=== PATIENT | female | born 1960 | race Caucasian/White ===

== ENCOUNTER 2020-09-11 11:14 | Outpatient (REF) | payer OTHER, SELFPAY ==
--- NOTE | 2020-09-11 11:21 | MM_ITS ---
EXAMINATION: MM SCREENING DIGITAL BREAST TOMOSYNTHESIS, BILATERAL CLINICAL INFORMATION: Screening. Asymptomatic. The lifetime risk of breast cancer based on the Tyrer-Cuzick Model is 5%. COMPARISON: Mammography: 07/27/2019, 06/25/2018 TECHNIQUE: Digital breast tomosynthesis is performed in both the craniocaudal and mediolateral oblique views along with computer-aided detection (CAD). Synthesized 2D images are generated from the tomosynthesis. Additional exaggerated right CC view is provided. FINDINGS: There are scattered areas of fibroglandular density (ACR BI-RADS breast composition Category b). There are no significant masses, abnormal calcifications, or other abnormalities. The axilla and skin contours are unremarkable. No significant changes. MM/MM tomosynthesis screening BI IMPRESSION: No mammographic evidence of malignancy. ASSESSMENT: BI-RADS 1: Negative RECOMMENDATION: Routine annual mammography screening. This patient's information was entered into a reminder system with a target due date for their next mammogram.
== END 2020-09-11 11:15 | disposition home or self-care (01) ==
LOC: HO.MAMMO 11:14
PROVIDERS: PCP Internal Medicine; Visit Provider Internal Medicine
DX: Z12.31 Encounter for screening mammogram for malignant neoplasm of breast (principal)
CPT/HCPCS: 77063; 77067

== ENCOUNTER 2023-11-16 10:51 | Outpatient (REF) | payer MEDICARE, OTHER, SELFPAY | END 2023-11-16 10:52 | disposition home or self-care (01) | LOC: HO.MAMMO 10:51 | PROVIDERS: PCP Family Medicine; Visit Provider Internal Medicine | DX: Z12.31 Encounter for screening mammogram for malignant neoplasm of breast (principal) | CPT/HCPCS: 77063; 77067 ==

== ENCOUNTER → 2023-11-16 11:00 | Outpatient (BNV) | payer MEDICARE, OTHER, SELFPAY | PROVIDERS: PCP Family Medicine; Visit Provider Radiology Diagnostic Radiology | DX: Z12.31 Encounter for screening mammogram for malignant neoplasm of breast (principal) | CPT/HCPCS: 77063; 77067 ==

== ENCOUNTER 2024-03-15 13:43 | Emergency (ER) | payer MEDICARE, OTHER, SELFPAY ==
--- NOTE | ~2024-03-15 | US_ITS ---
EXAMINATION: US VENOUS ULTRASOUND WITH DOPPLER LOWER EXTREMITY, RIGHT CLINICAL INFORMATION: Edema and pain. COMPARISON: None available. TECHNIQUE: Ultrasound of the deep veins is performed from the hip to the calf with compression sonography and color and pulse Doppler assessment. Spectral analysis with color-flow imaging is performed. FINDINGS: There is normal venous compression and respiratory variation and augmented flow. The visualized common femoral vein, superficial femoral vein, profunda femoral vein, popliteal vein, and the trifurcation region shows no evidence of deep venous thrombosis. There is no significant popliteal fossa cyst. If the patient's symptoms persist, followup ultrasound in 5 days 7 days might be of value to exclude proximal propagation from a non-visualized calf vein. US/US venous duplex LE RT IMPRESSION: No DVT demonstrated in the right lower extremity.
--- NOTE | ~2024-03-15 | XR_ITS ---
EXAMINATION: XR KNEE, RIGHT CLINICAL INFORMATION: Pain and swelling. COMPARISON: None available. TECHNIQUE: Four views of the right knee. FINDINGS: No acute fracture or subluxation. Mild tricompartmental degenerative osteoarthritis. No osseous erosions. No chondrocalcinosis. Small joint effusion. XR/XR knee RT 3V IMPRESSION: 1. No acute fracture or subluxation. 2. Mild tricompartmental degenerative osteoarthritis. 3. Small joint effusion.
[2024-03-15 13:47] VITALS: BP 133/82; PULSE 65; RESP 16; TEMP 36.6; O2SAT 96; BMI 26.3
--- NOTE | 2024-03-15 13:47 | ED_ITS ---
HPI - Extremity Injury (Lower) General Chief Complaint: Extremity Injury, Lower Stated Complaint: r knee inj Time Seen by Provider: 03/15/24 14:32 Source: patient Mode of arrival: ambulatory Limitations: no limitations History of Present Illness HPI Narrative: 63-year-old female history of kidney disease presents to the ED for right knee pain and swelling since doing gardening work. Patient states while doing going to work on Monday she was doing heavy lifting and made awkward rotating turning movement of her right knee. Patient states at 1 point she almost fell so she gather her herself twisted her right knee. Patient denies falling to the ground. Patient denies hitting head. Patient states ever since right knee pain and swelling. Patient states no leg swelling, calf pain, chest pain, shortness of breath, recent long travel, recent surgery. Patient states knee swelling has improved with icing but still has pain. Related Data Previous Rx's ?Medication ?Instructions ?Recorded acetaminophen 325 mg capsule 325 mg PO QID PRN pain 7 days #28 03/15/24 caps prednisone 20 mg tablet 40 mg (2 x 20 mg) PO DAILY 5 days 03/15/24 #10 tabs Allergies Allergy/AdvReac Type Severity Reaction Status Date / Time lithium [LITHIUM] Allergy Intermediate KIDNEY Verified 03/15/24 13:50 DAMAGE Codeine Sulfate Allergy Unknown Unknown Uncoded 03/15/24 13:50 Review of Systems 2 Review of Systems: Right knee pain Yes all other systems are reviewed and are negative [facility] Social History Social History (System 10/29/20 @ 14:56 by Araceli Cunningham) Advance Directives: No Advance Directives Information Provided: No Physical Exam 2 Vital Signs: Vital Signs: Last Vital Signs Temp 98 F 03/15/24 17:09 Pulse 65 03/15/24 17:09 Resp 18 03/15/24 17:09 BP 133/82 03/15/24 17:09 Pulse Ox 96 03/15/24 17:09 O2 Del Method Room Air 03/15/24 17:09 BMI result Body Mass Index 26.3 Const: General: cooperative, healthy appearing, comfortable, no acute distress, well developed, alert, awake and Physically active O rientation/consciousness: oriented to person, oriented to place, oriented to time and patient oriented x3 HEENT: Head: Yes normal to inspection, Yes No palpable skull fracture present, Yes normocephalic, Yes atraumatic and No abrasion Eyes: General: appearance normal, both eyes and all related structures Neck: Neck: Yes normal visual inspection, Yes full ROM, Yes no lymphadenopathy, Yes no meningeal signs, Yes trachea midline, Yes supple, No anterior neck swelling and No tender Chest: Chest palpation & inspection: normal inspection of the chest and normal palpation of entire chest wall Resp: Effort & Inspection: normal respiratory effort and able to speak in complete sentences Auscultation: clear to auscultation bilaterally Cardio: Jugular venous distension: no JVD Heart sounds: S1 normal heart sound present and S2 normal heart sound present GI: Inspection: Yes normal to inspection and No abdominal wall ecchymosis P alpation (GI): Soft to palpation, not firm, nontender, no guarding and not rigid : General: No CVA tenderness and Yes no CVA tenderness Back/Spine/Pelvis: Back: no CVA tenderness, No CVA tenderness and No back tenderness Skin: General skin exam: no rashes or lesions noted, elasticity normal and turgor normal Neuro: General: oriented to person, oriented to place, oriented to time, patient oriented x3, gait normal, tone normal, moves all extremities, Normal light touch and pain sensation, no meningeal signs, no focal motor deficits, CN's II-XI intact bilaterally and normal sensation to monofilament Extrem: General: Yes normal to inspection, Yes full ROM and Yes capillary refill normal Knee images: 1. Positive for swelling and tenderness on palpation. Negative for erythema, ecchymosis, crepitus, or deformity. negative for Warmth or coldness. Patient has complete flexion and extension of knee. Rest of lower extremity normal. Motor/neuro/ vascular exam intact 2. Positive for swelling and tenderness on palpation. Negative for erythema, ecchymosis, crepitus, or deformity. negative for Warmth or coldness. Patient has complete flexion and extension of knee. Rest of lower extremity normal. Motor/neuro/ vascular exam intact 3. positive for tenderness on palpation . Negative for palpable mass on palpation. Psych: Appearance: grossly normal, well kempt and not disheveled Course Course Course Narrative: This is a rapid medical exam performed by Minh Snyder NP: Additional HPI, ROS, PE not included below will be deferred to primary provider. Patient is a 63-year-old female presenting to the ED with complaint of right knee pain and swelling since doing a good deal of yardwork on Monday. Saw PCP who referred her to ortho clinic which was closed. Has been using ice, pain and swelling are persisting. Pain behind knee for the first two days. Swelling noted in triage. Plan: x-ray Medical Decision Making Medical Decision Making MDM Narrative: 63-year-old female presents to the ED for right knee pain and swelling since doing garden work on Monday and did awkward movement. Patient states icing has improved but still swollen also has posterior knee pain. Initial x-ray shows arthritis with small joint effusion. Not suspecting septic joint. Due to posterior knee pain will do ultrasound to make sure there is no possible DVT. not suspecting gout. patient explained worrisome signs and to told return if she has them. Differential Diagnosis Differential Diagnoses: The differential diagnosis associated with the presentation includes (fracture, ACL/meniscus injfury, dislocation, septic joint, gout) Independent Interpretation I performed an independent interpretation of an: Plain X-Ray Radiology Impression Discussion of test interpretation with radiology: I have reviewed the radiologist's reading. Independent Historian Clinical information obtained from an independent historian. History obtained from or confirmed by: Other (patient) External Record Review External record reviewed: Other (prior vistis) Prescription Management I considered prescription management with: Pain Medication Discharge Plan Discharge Clinical Impression: Swelling of joint, knee, right, Arthritis Patient Disposition: Home, Self-Care Instructions: Osteoarthritis (ED), Swollen Knee Joint (ED) Additional Instructions: ultrasound came back negative for DVT. Right knee x-ray shows small joint effusion and degenerative osteoarthritis. You may need MRI to evaluate for possible meniscus ligament tear of the knee. Return to the ED immediately for worsening swelling, redness, warmth, stiffness, calf pain, fever, chest pain, shortness of breath, or any other concerning symptoms. Recommend follow-up with primary care provider and you will need follow-up with orthopedic surgeon. Recommend icing the 1st 24 hours and also Donnie wrap. No strenuous activity. XR/XR knee RT 3V IMPRESSION: 1. No acute fracture or subluxation. 2. Mild tricompartmental degenerative osteoarthritis. 3. Small joint effusion. US/US venous duplex LE RT IMPRESSION: No DVT demonstrated in the right lower extremity. Prescriptions: New prednisone 20 mg tablet 40 mg PO DAILY 5 Days Qty: 10 0RF acetaminophen 325 mg capsule 325 mg PO QID PRN (Reason: pain) 7 Days Qty: 28 0RF [place] [facility] [place] [facility] [place] ( Right knee swelling after awkward movement while gardening. May need MRI to rule out meniscus / ligament tear.) Interventions: ED Discharge Assessment Last Done: 03/15/24 17:09 Discharge Date/Time: 03/15/24 17:10 Print Language: Greenlandic
--- NOTE | 2024-03-15 15:31 | MHC.EDTECH ---
Pt fitted for crutches, tolerates them well and has no complaints
[2024-03-15 17:09] VITALS: BP 133/82; PULSE 65; RESP 18; TEMP 36.6; O2SAT 96
== END 2024-03-15 17:10 | disposition home or self-care (01) ==
PROVIDERS: Emergency Provider Emergency Medicine; PCP Family Medicine
DX: M17.11 Unilateral primary osteoarthritis, right knee (principal); M25.461 Effusion, right knee
CPT/HCPCS: 73562; 93971; 99283; 99284

== ENCOUNTER 2025-05-22 16:51 | Emergency (ER) | payer MEDICARE, OTHER, SELFPAY ==
[2025-05-22 17:04] VITALS: BP 173/88; PULSE 68; RESP 16; TEMP 35.9; O2SAT 98; BMI 25.8
--- NOTE | 2025-05-22 18:35 | ED.GENADULT ---
[facility] - General Adult General Chief complaint: Wound/Laceration Stated complaint: open wound on face Time Seen by Provider: 05/22/25 18:52 Source: patient, family and RN notes reviewed Mode of arrival: ambulatory Limitations: no limitations History of Present Illness ED Provider: Leela Rose PA-C [facility] narrative: This is a 64-year-old female, with a past medical history of anxiety, who presents emergency department with concerns of wound on left side of face. Patient states that about 1 year ago she had a wound, she states that she was unsure if she was bit or injured, she states that she eventually followed up with a sales management trainee, at that time the sales management trainee was treating for a scar, she had did not have a biopsy performed. Patient states that eventually the wound had healed. She states that since yesterday she has noticed increased redness, and itchiness to the left side of her face as well as associated mild pain. No fevers or chills. No known injury, or exposures. She is otherwise feeling well. No other complaints or concerns at this time. MD complaint: Rash Onset (ago): day(s) Location: face Radiation: non-radiation Pain Consistency: constant Associated symptoms: denies other symptoms Treatments prior to arrival: none Related Data Previous Rx's ?Medication ?Instructions ?Recorded acetaminophen 325 mg capsule 325 mg PO QID PRN pain 7 days #28 03/15/24 caps prednisone 20 mg tablet 40 mg (2 x 20 mg) PO DAILY 5 days 03/15/24 #10 tabs mupirocin 2 % topical ointment 1 appl topical BID #15 grams 05/22/25 (Centany) prednisone 20 mg tablet 40 mg (2 x 20 mg) PO DAILY 5 days 05/22/25 #10 tabs valacyclovir 1 gram tablet 1,000 mg PO TID 10 days #30 tabs 05/22/25 Allergies Allergy/AdvReac Type Severity Reaction Status Date / Time lithium (LITHIUM) Allergy Intermediate KIDNEY Verified 05/22/25 17:04 DAMAGE Codeine Sulfate Allergy Unknown Unknown Uncoded 05/22/25 17:04 Review of Systems Review of Systems: Yes all other systems are reviewed and are negative Constitutional: Constitutional: Reports as per [facility] Past Medical History Attestation statement: The following information was validated with the patient. Social History Social History (System 10/29/20 @ 14:56 by Araceli Cunningham) Advance Directives: No Advance Directives Information Provided: No Physical Exam ED Vital Signs: Vital Signs - 24 hr 05/22/25 17:04 05/22/25 19:26 Temperature 96.7 F L 96.7 F L Pulse Rate 68 68 Respiratory Rate 16 16 Blood Pressure 173/88 H 173/88 H Pulse Oximetry 98 98 Oxygen Delivery Method Room Air Room Air BMI result Body Mass Index 25.8 Const Other: General: Awake, alert, and oriented X3. No acute distress. HEENT: Normal inspection CVS: Normal heart rate and rhythm. Pulses normal. Respiratory: No respiratory distress Skin: See photo Extremities: Normal to inspection Neuro: Oriented X 3. No motor deficit. No sensory deficit. Left side of face, with area of erythema, she does have multiple vesicles noted, nontender Medical Decision Making Medical Decision Making MDM Narrative: This is a 64-year-old female, with a past medical history of anxiety, who presents emergency department with complaints of rash on the left side of her face. On arrival, blood pressure slightly elevated 173/88, she has no chest pain, shortness of breath, blurred vision, headaches. Patient has had a rash on the left side of her face, patient has had this for a year, she states that it resolved up until yesterday. She does have multiple vesicles, difficult to see on photo. Discussed with patient, that she may have early shingles. Discussed with patient that we will treat with prednisone, valacyclovir, and Bactroban. Given strict return precautions. Encouraged to follow-up with dermatology as she may need to have this region biopsied. Given strict return precautions. Patient stable for discharge. Differential Diagnosis Differential Diagnoses: The differential diagnosis associated with the presentation includes Contact dermatitis, early shingles, wound, cellulitis Discharge Plan Discharge Clinical Impression: Rash Patient Disposition: Home, Self-Care Instructions: Acute Rash (ED) Additional Instructions: You were seen in the emergency department due to a rash. The concern is you have had this ongoing wound for the last year. Please follow-up with your sales management trainee. You may have a bacterial skin rash or you may also have the start of shingles. Please take prescribed medication as directed. Valacyclovir is an antiviral, prednisone is a steroid. Muprocin is a topical antibacterial agent that can help treat if this is a bacterial infection. If any new or worsening her including but not limited to worsening rash, high fevers, severe chest pain or shortness of breath, changes in your vision, the rash is spreading, please seek emergent care. Prescriptions: New valacyclovir 1 gram tablet 1,000 mg PO TID 10 Days Qty: 30 0RF prednisone 20 mg tablet 40 mg PO DAILY 5 Days Qty: 10 0RF mupirocin [Centany] 2 % ointment 1 appl topical BID Qty: 15 0RF No Action prednisone 20 mg tablet 40 mg PO DAILY 5 Days Qty: 10 0RF acetaminophen 325 mg capsule 325 mg PO QID PRN (Reason: pain) 7 Days Qty: 28 0RF Interventions: ED Discharge Assessment Last Done: 05/22/25 19:26 Discharge Date/Time: 05/22/25 19:26 Print Language: Chinese
--- OUTSIDE RECORDS SUMMARY | 2025-05-22 19:01 | XMS_ITS | Patient Health Record ---
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 Primary Care Provider Betty vailable Víctor Russell Unavailable [phone] Paradise Castro Unavailable Unavailable Reason For Referral No Information Medications Medication SIG (Take, Route, Fr equency, Duration) Notes Start Date End Date Status Topiramate Active SEROquel Active lamoTRIgine Active Eye Drops Active valACYclovir HCl Act dilma Immunizations Vaccine Route Administration Date Status Comme nts Influenza Unknown 07/14/2015 Administered Problems Problem Type SNOMED Code ICD Code Onset Dates Problem Status W/U Status Risk Notes Problem 343352284 Encounter for screening for malignant neoplasm of colon (Z12.11) Active confirmed Problem Screening for malignant neoplasm of rectum (067202584) Encounter for screening for malignant neoplasm of rectum (Z12.12) Active confirmed Problem 00711062 Preprocedural examination (Z01.818) Active confirmed Plan Of Treatment Future Test Test Name Order Date COLONOSCOPY 07/28/2016 Insurance Providers Payer Name Payer Address Payer Phone Subscriber Number Group Number Insured Name Patient Relationship to Insured Coverage Start Date Coverage End Date [facility] [address] [place] [phone] [id number] MARJORIE GRIGSBY Self - patient is the insured Medical (General) History Medical History History ICD Code COPD-- mild Denies IN,DM,CVA,,renal disease Depression/anxiety Surgical History Surgery Date(Month/Year) lump right breast- benign 1993 tonsillectomy-age 3
--- OUTSIDE RECORDS SUMMARY | 2025-05-22 19:01 | XMS_ITS | Data Portability ---
Author Organization [facility], [facility] Address [address] [place] [address] Care Team Providers Care Entertainer Or Variety Artist Name Role Phone CESAR KCIN Primary Care Provider Assessment No assessment recorded. Plan of Treatment Reminders Order Date Submit Date Provider Last Modified By Organization Details Last Modified Time Details Appointments None recorded. Lab None recorded. Referral None recorded. Procedures None recorded. Surgeries None recorded. Imaging None recorded. Medication Orders meloxicam 15 mg tablet 2023 024 TRACY Not available 4 15:39:55 Patient TargetsNo targets recorded. Patient InstructionsNo instructions recorded. Reason for Referral None Reported. Medical Equipment None Reported. Allergies Allergen ID Allergen Name Allergen Category Reaction Reaction Severity Criticality Documentation Date Start Date Code Code System Note Provider Name and Address Organization Details Recorded Time [id number] codeine medicatio n Not available Not available Not available 04/04/2024 2670 RxNorm BREA ojeda [facility] 4 10:21:42 Medications Name Sig Start Date Stop Date Status Note LastModified by Organization Details LastModified Time latanoprost 0.005 % eye drops INSTILL 1 DROP IN BOTH EYES EVERY NIGHT AT BEDTIME active Not Available Not Available No t Available buspirone 5 mg tablet active Not Available Not Available No t Available lamotrigine 200 mg tablet active Not Available Not Availabl e Not Available meloxicam 15 mg tablet TAKE 1 TABLET BY MOUTH EVERY DAY DIRECTED active Not Available Not Available No t Available prednisone 20 mg tablet TAKE 2 TABLETS BY MOUTH DAILY FOR 5 DAYS active Not Available Not Available No t Available butalbital-ac etaminophen-c affeine 50 mg-325 mg-40 mg tablet TAKE 1 TABLET BY MOUTH EVERY 8 HOURS NEEDED active Not Available Not Available No t Available meloxicam 7.5 mg tablet TAKE 1 TABLET BY MOUTH DAILY FOR 7 DAYS active Not Available Not Available No t Available trazodone 100 mg tablet TAKE 1 TABLET BY MOUTH DAILY AT BEDTIME active Not Available Not Available No t Available lorazepam 1 mg tablet active Not Available Not Available No t Available albuterol sulfate HFA 90 mcg/actuation aerosol inhaler INHALE 2 PUFFS BY MOUTH EVERY 4 TO 6 HOURS active Not Available Not Available No t Available topiramate 100 mg tablet TAKE 1 TABLET BY MOUTH TWICE DAILY active Not Available Not Available No t Available diclofenac 1 % topical gel APPLY 2 GRAMS TO THE AFFECTED AREAS TOPICALLY FOUR TIMES DAILY active Not Available Not Available No t Available desvenlafaxin e succinate ER 25 mg tablet,extend ed release 24 hr active Not Available Not Available Not Available Vitals Date Recorded Body height Body mass index (BMI) Body weight Provider Name and Address Organization Details Last Updated DateTime 04/02/2024 157.48 cm 26.3 kg/m2 22479.3 g KATIE perdomo [place] [facility] 04/02/2024 15:15:48 Social History None recorded. Functional Status None recorded. Mental Status None recorded. Family History Nothing Reported. Medical History No medical history recorded. Gynecological HistoryNo gynecological history recorded. Obstetrics History GPAL:G 0 P 0 0 0 0 Past Encounters Encounter ID Performer Location Encounter Start Date Encounter Closed Date Diagnosis/Indication Diagnosis SNOMED-CT Code Diagnosis ICD10 Code Diagnosis Note [id number] LIZBETH Sweeney [address] [place] [address] 04/02/2024 15:03:45 04/15/2024 14:41:39 Osteoarthritis of right knee joint 5749880189 06064 M17.11 Health Concerns Section Related Observation LastModified by Organization Detai ls LastModified Time None Recorded Concern Status LastModified by Organization Details LastModified Time None Recorded Advance Directives Directive None Recorded Payers Insurance Date Sequence Insurance Name Policy Number Policy Sierra Covered Member ID Sierra Member ID Guarantor Name 04/02/2024 1 [place]ICARE [place]: [employer] Se[place] Miles [id number] Seble Miles 04/15/2024 2 FOR LIFE ( - MEDICARE SUPPLEMENT) Seble Miles [id number] Seble Miles Notes Date Note Type Note Provider Name and Address Organization Details Recorded Time 04/02/2024 text/html I am seeing the patient today under the supervision of Dr. Vargas who was available but who did not see the patient. HPI:Patient is a 63-year-old female who presents to the office today with complaint of right knee pain. Patient states that she began to experience pain after gardening on 03/11/24 She states she was doing a lot of walking, squatting, kneeling, up and down stairs during that day. States the next day she had increased swelling in her knee as well as pain. Denied any specific inciting events or injuries. Shortly after did present to her primary care as well as an emergency department and was given a prescription for prednisone as well as meloxicam. She states that these medications combined have provided her with excellent relief. Her knee has barely any pain in it today and over the last couple of days. She has been slowly getting back into her normal activities without discomfort. Denies any mechanical symptoms such as catching, locking, or buckling. Past family, medical, social history and review of systems has been reviewed, updated and is located in the patient s chart. Examination:Well appearing 63-year-old female in no acute distress. She is alert and oriented x3. She ambulates with symmetric gait. Right knee reveals no erythema, warmth, ecchymosis, or swelling. Very mild tenderness to palpation over the medial joint line. No tenderness palpation over the lateral joint line. Range of motion of the knee from 3-120 degrees. The knee is stable to valgus and varus stress testing. Knee strength 5/5 against resistance with flexion and extension. Negative Mike test. Negative Michael's maneuver. Calf is soft and nontender. 3 views reviewed from an outside source reveal mild degenerative changes noted within the medial compartment. Mild subchondral sclerosis. Minimal osteophyte formation. No evidence of fracture. Impression:Mild right Knee osteoarthritis with likely arthritic flare Plan:We discussed the role of conservative management including medications, physical therapy, injection.At this point a lot of the patient's pain has subsided with the use of meloxicam as well as prednisone. She was only given a seven-day course of meloxicam and we discussed continuing this medication over the next couple weeks. Patient agrees with this today. Given a refill on the meloxicam. Advised the patient to utilize any other anti-inflammatory medications while she is taken this. She will continue to monitor her symptoms. We did have a discussion that in the future if she continues to experience pain we could try an injection. Patient agrees with the treatment plan. At this time all patient's questions and concerns were answered today. Mandeep Sparks PA-C [address], [place], [address], [facility] [place] [facility] 04/02/2024 15:47:49 OBGyn Episode No OBEpisode recorded.
--- OUTSIDE RECORDS SUMMARY | 2025-05-22 19:01 | XMS_ITS | Clinical Summary ---
Author Organization [facility] it Address [address] [place] [address] Care Team Providers Care Spice Grinder Name Role Phone Kayla Aponte MD Primary Care Provider Unava ilable Surgical History Surgery Date Site/Laterality Comments TONSILLECTOMY PROCEDURE: HISTORICAL TONSILLECTOMY Medical History Medical History Date Comments Depression DX:Depression Anxiety DX:Anxiety PTSD (post-traumatic stress disorder) DX:PTSD (post-traumatic stress disorder) Overdose of drug June 2008 DX:Overdose of drug Migraine DX:Migraine CKD (chronic kidney disease) stage 2, GFR 60-89 ml/min 12/20/2010 DX:CKD (chronic kidney disea se) stage 2, GFR 60-89 ml/min; COMMENT: Dr. Martin COPD (chronic obstructive pu lmonary disease) ([facility] V24, [facility] V28) 03/14/2011 DX:COPD (chronic o bstructive pulmonary disease) ([facility]) Adopted person DX:Adopted perso n Heartburn 04/30/2019 DX:Heartburn Epigastric pain 08/29/2019 DX:Epigastric pa in Family History Medical History Relation Name Comments No Known Problems Daughter 1 1982; Amanda ifer; healthy No Known Problems Daughter 2 1984; Suri william; healthy Relation Name Status Comments Daughter 1 Alive 1982; Liz; healthy Daughter 2 Alive 1984; Aminta ; healthy Social History Tobacco Use Types Packs/Day Years Used Date Smoking Tobacco: Former Cigarettes Q uit: 06/20/2016 Smokeless Tobacco: Never Alcohol Use Standard Drinks/Week Comments No 0 (1 standard drink = 0.6 oz pur e alcohol) Comments Unknown Sex and Gender Information Value Date Recorded Sex Assigned at Not on file Legal Sex Female 2:44 PM EST Gender Identity Not on file Sexual Orientation Not on file Obstetrics History Plan of Treatment Health Maintenance Due Date Last Done Comments Breast Cancer Screening 1960 Pneumococcal Vaccine: 50+ Years (2 of 2 - PCV) 03/28/2017 03/28/2016 RSV Immunization Adult Patients (1 - Risk 60-74 years 1-dose series) 2018 Colorectal Cancer Screening: Colonoscopy 10/12/2022 Depression Screening 10/12/2022 Hepatitis C Screening 10/12/2022 Lung Cancer Screening (Low Dose CT) 10/12/2022 02/24/2021 Osteoporosis Screening (Bone Density Screening) 10/12/2022 Social Influencers of Health Screening 10/12/2022 Falls Risk Assessment 2023 COVID-19 Vaccine ( season) 2024 Influenza Vaccine (#1) 2025 9, 08/11/2015, 09/25/2013, Additional history exists DTaP,Tdap,and Td Vaccines (3 - Td or Tdap) 03/28/2026 03/28/2016, 11/18/2009 IPV Vaccines Completed 09/23/1966, 0411/1962, 04/13/1962, Additional history exists Zoster Vaccines Completed 10/12/2018, 08/08/2018 MMR Vaccines Aged Out 06/12/2019, 05/08/2019 No lo nger eligible based on patient's age to complete this topic HIB Vaccines Aged Out No longer eligi ble based on patient's age to complete this topic HPV Vaccines Aged Out No longer eligi ble based on patient's age to complete this topic Hepatitis A Vaccines Aged Out No long er eligible based on patient's age to complete this topic Hepatitis B Vaccines Aged Out No long er eligible based on patient's age to complete this topic Meningococcal ACWY Vaccine Aged Out N o longer eligible based on patient's age to complete this topic Meningococcal B Vaccine Aged Out No l onger eligible based on patient's age to complete this topic RSV Immunization Patients Under 20 months Aged Out No longer eligible based on patient's age to complete this topic Varicella Vaccines Aged Out No longer eligible based on patient's age to complete this topic Procedures Procedure Name Priority Date/Time Associated Diagnosis Comments CT LUNG SCREENING LOW DOSE Routine 02/24/2021 1:49 PM EDT Personal history of nicotine dependence from Last 3 Months or Most Recently Relevant to Health Maintenance Results * CT LUNG SCREENING LOW DOSE (02/24/2021 1:49 PM EDT) Anatomical Region Laterality Modality Computed Tomogra phy 02/24/2021 11:1 5 AM EDT Narrative 02/24/2021 1:49 PM EDT [facility] Diagnostic Imaging Department [address] [place] [address] Patient: CALISTASEBLE M /Age/Sex: 1960 - 60 - F Unit#: [id number] [facility] CLI Mnemonic/Ordering Site: [facility] Ordering Physician: MAHESH ALBA MD CT Lung Screening Low Dose - 02/24/211119 History: 60 year-old 41 pack-year former smoker, asymptomatic, for lung cancer screening. Quit smoking 5 years ago. Comparison: 12/10/19 Technique: Helical volumetric imaging of the thorax was performed, using low- dose technique, without IV contrast. DLP: 111.98 mGy/cm CTDIvol: 3.22 mGy [employer] VCT Iterative reconstruction technique Findings: Lungs and Airways: The trachea and central bronchial tree remain patent. Patchy centrilobular emphysema is again noted. Solid, noncalcified pulmonary nodules include a 4 mm right middle lobe nodule (image 143 series 4), and a few 1 to 2 mm nodules versus peripheral mucous plugging in the right upper lobe. No suspicious developing nodule is identified. Pleura: No pleural effusions are seen. Minimal focal pleural calcification is seen in the posteromedial left hemithorax, unchanged. A trace pericardial effusion is unchanged. Base of neck, mediastinum and heart: No developing thoracic lymphadenopathy is seen. The heart is not enlarged. Moderate atherosclerotic calcification of the thoracic aorta and coronary arteries is seen. Soft tissues: The overlying soft tissues are unremarkable. Abdomen: This study was performed without contrast and with lower than standard dose. These factors reduce the sensitivity for detection of small lesions in the upper abdomen. No significant abnormality is seen. Impression: No suspicious developing pulmonary nodule. No significant change. Lung RADS 2: Benign Appearance or Behavior - Continue annual screening with LDCT in 12 months. [id number] G9637 G9557 G9551 Dictating Physician: SHERRY BRIGHT MD Electronically Signed by: SHERRY BRIGHT MD Dic Date/Time: 02/24/21 1338 Sign date/Time: 02/24/21 1349 Procedure Note Sherry Bright MD - 11/01/2022 [facility] Diagnostic Imaging Department [address] [place] [address] Patient: SEBLE GRIGSBY /Age/Sex: 1960 - 60 - F Unit#: [id number] Location/Status: SPDICATLS/REG CLI Mnemonic/Ordering Site: [facility] Ordering Physician: MAHESH ALBA MD CT Lung Screening Low Dose - 02/24/21 - 1120 History: 60 year-old 41 pack-year former smoker, asymptomatic, for lungcancer screening. Quit smoking 5 years ago. Comparison: 12/10/19 Technique: Helical volumetric imaging of the thorax was performed, usinglow- dose technique, without IV contrast. DLP: 111.98 mGy/cm CTDIvol: 3.22 mGy [employer] VCT Iterative reconstruction technique Findings: Lungs and Airways: The trachea and central bronchial tree remain patent.Patchy centrilobular emphysema is again noted. Solid, noncalcified pulmonary nodules include a 4 mm right middle lobenodule (image 143 series 4), and a few 1 to 2 mm nodules versus peripheralmucous plugging in the right upper lobe. No suspicious developing nodule isidentified. Pleura: No pleural effusions are seen. Minimal focal pleural calcificationis seen in the posteromedial left hemithorax, unchanged. A tracepericardial effusion is unchanged. Base of neck, mediastinum and heart: No developing thoraciclymphadenopathy is seen. The heart is not enlarged. Moderate atherosclerotic calcification ofthe thoracic aorta and coronary arteries is seen. Soft tissues: The overlying soft tissues are unremarkable. Abdomen: This study was performed without contrast and with lower thanstandard dose. These factors reduce the sensitivity for detection of small lesionsin the upper abdomen. No significant abnormality is seen. Impression: No suspicious developing pulmonary nodule. No significant change. Lung RADS 2: Benign Appearance or Behavior - Continue annual screeningwith LDCT in 12 months. [id number] G9637 G9557 G9551 Dictating Physician: SHERRY BRIGHT MD Electronically Signed by: SHERRY BRIGHT MD Dic Date/Time: 02/24/21 1338 Sign date/Time: 02/24/21 1349 us Mahesh Alba MD IMG CT PROCEDURES Final Result from Last 3 Months or Most Recently Relevant to Health Maintenance Care Teams Spice Grinder Relationship Specialty Start Date End Date Kayla Aponte MD PCP - General 07/17/08
[2025-05-22 19:26] VITALS: BP 173/88; PULSE 68; RESP 16; TEMP 35.9; O2SAT 98
== END 2025-05-22 19:26 | disposition home or self-care (01) ==
PROVIDERS: Emergency Provider Emergency Medicine Emergency Medical Services; PCP Family Medicine
DX: R21 Rash and other nonspecific skin eruption (principal)
CPT/HCPCS: 99282; 99283

== ENCOUNTER 2025-11-11 23:58 | Emergency (ER) | payer MEDICARE, OTHER, SELFPAY ==
--- NOTE | ~2025-11-11 | XR_ITS ---
CLINICAL HISTORY: shortness of breath 2 view chest x-ray Comparison: None provided Findings: No consolidation or effusion. Heart size is normal. No acute fracture. IMPRESSION: 1. No acute findings. This document has been electronically signed by: Cristina Lockhart MD on 11/12/2025 01:57:48
[2025-11-12 00:34] VITALS: PULSE 75; RESP 20; TEMP 36.7; O2SAT 98; BMI 28.3
--- NOTE | 2025-11-12 00:34 | ECG_ITS ---
Test Reason : WEAKNESS Blood Pressure : */* mmHG Vent. Rate : 78 BPM Atrial Rate : 78 BPM P-R Int : 142 ms QRS Dur : 72 ms QT Int : 404 ms P-R-T Axes : 84 65 68 degrees QTcB Int : 460 ms Sinus rhythm with occasional Premature ventricular complexes Otherwise normal ECG When compared with ECG of 19-Jun-2008 06:45, Premature ventricular complexes are now Present Referred By: Willy Angeles Electronically Signed By: AGUSTIN KEYS
--- NOTE | 2025-11-12 00:34 | ED_ITS ---
HPI - General Adult General Chief complaint: General Medical Stated complaint: Flu? Time Seen by Provider: 11/12/25 02:12 Source: patient Limitations: no limitations History of Present Illness ED Provider: Bhavani Jovel PA-C HPI narrative: 65-year-old female with a history of anxiety, presents with viral syndrome x2 days. Associated generalized cough, malaise, myalgia, nausea vomiting diarrhea. She states her is sick with similar symptoms. Denies fever. No abdominal pain. Related Data Previous Rx's ?Medication ?Instructions ?Recorded acetaminophen 325 mg capsule 325 mg PO QID PRN pain 7 days #28 03/15/24 caps prednisone 20 mg tablet 40 mg (2 x 20 mg) PO DAILY 5 days 03/15/24 #10 tabs mupirocin 2 % topical ointment 1 appl topical BID #15 grams 05/22/25 (Centany) prednisone 20 mg tablet 40 mg (2 x 20 mg) PO DAILY 5 days 05/22/25 #10 tabs valacyclovir 1 gram tablet 1,000 mg PO TID 10 days #30 tabs 05/22/25 ondansetron 4 mg disintegrating 4 mg PO Q8H PRN nausea and 11/12/25 tablet vomiting #12 tabs Allergies Allergy/AdvReac Type Severity Reaction Status Date / Time lithium (LITHIUM) Allergy Intermediate KIDNEY Verified 11/12/25 00:37 DAMAGE Codeine Sulfate Allergy Unknown Unknown Uncoded 05/22/25 17:04 Review of Systems 2 Review of Systems: Yes all other systems are reviewed and are negative Constitutional: Constitutional: Reports fatigue, Denies fever(s) and Reports malaise Cardiovascular: Cardiovascular: Denies chest pain and Denies dyspnea Respiratory: Respiratory: Reports cough and Denies dyspnea Gastrointestinal: Gastrointestinal: Denies abdominal pain, Reports diarrhea, Reports nausea and Reports vomiting Endocrine: Endocrine: Reports fatigue PMFSH Past Medical History Attestation statement: The following information was validated with the patient. Social History Social History (System 10/29/20 @ 14:56 by Araceli Cunningham) Smoked in Last 30 Days: No Use of substances other than those prescribed or required for medical reasons: No Advance Directives: No Advance Directives Information Provided: No Do you have a plan to hurt others: No Plan Physical Exam ED Vital Signs: Vital Signs - 24 hr 11/12/25 00:34 11/12/25 02:35 Temperature 98.0 F 98 F Pulse Rate 75 69 Respiratory Rate 20 20 Blood Pressure 144/53 H Pulse Oximetry 98 99 Oxygen Delivery Method Room Air Room Air BMI result Body Mass Index 28.3 Const Other: Anxious, fidgeting, repeating the same questions Orientation/consciousness: patient oriented x3 Resp Effort & Inspection: normal respiratory effort Cardio Other: Normal peripheral perfusion Skin Other: Warm dry no rash Neuro General: patient oriented x3, gait normal, no focal motor deficits and CN's II- XI intact bilaterally Psych Other: Cooperative, extremely anxious Course Course Course Narrative: RME, this is a rapid medical exam performed by Jose Angeles please refer to primary provider for complete H&P- 65-year-old female presents for evaluation of cough, shortness of breath, vomiting and body aches. Symptoms started in his couple of days ago. She reports a history of COPD but is not dependent on oxygen. She is afebrile in triage, oxygen saturation is 99% on room air Medications Administered Discontinued Medications Generic Name Dose Route Start Last Admin Trade Name Freq PRN Reason Stop Dose Admin Ondansetron HCl 8 mg 11/12/25 02:19 11/12/25 02:29 Ondansetron Odt 8 Mg Tab.Rapdis TRANSLINGU 11/12/25 02:20 8 mg ONCE ONE Administration Medical Decision Making Medical Decision Making [facility] Narrative: 65-year-old female with a history of anxiety, presents with viral syndrome x2 days. Associated generalized malaise, cough, myalgia, nausea vomiting diarrhea. She states her is sick with similar symptoms. Denies fever. No abdominal pain. Problem: Anxiety History: Per patient I have considered the following differential diagnoses: Viral syndrome, acute intra-abdominal pathology, pneumonia, gastroenteritis Plan: X-ray and viral panel screening labs obtained from triage, she has COVID, chest x-ray negative, no hypoxia, she does not require hospital admission or steroid. She is not having belly pain, she does not require imaging. The symptoms are expected with the COVID-19 virus. We will send with home care instructions and symptomatic relief. I have independently reviewed the following tests: Labs: Slight leukocytosis, left shift noted, not anemic, no electrolyte abnormality, creatinine at baseline, positive for COVID Chest x-rayFindings: No consolidation or effusion. Heart size is normal. No acute fracture. IMPRESSION: 1. No acute findings. Differential Diagnosis Differential Diagnoses: The differential diagnosis associated with the presentation includes See [facility] Admission/Observation Consideration of admission/observation: Escalation of care including admission/observation considered Not applicable Lab Data [facility] Lab Attestation statement: I reviewed the patient's lab results. 11/12/25 00:48 11/12/25 00:48 Labs: Lab Results 11/12/25 Range/Units 00:48 WBC 12.1 H (4.8-10.8) X10*3/uL RBC 4.94 (4.20-5.50) X10*6/uL Hgb 15.7 (12.0-16.0) g/dl Hct 44.8 (37.0-47.0) % MCV 90.7 (80.0-98.0) fL MCH 31.8 (27.0-33.0) pg MCHC 35.0 (31.0-35.0) g/dl RDW 12.1 (11.0-16.0) % Plt Count 209 (160-400) X10*3/uL MPV 10.8 (9.4-12.3) fL Immature Gran % (Auto) 0.3 (0.0-0.4) % Neut % (Auto) 86.3 H (45-73) % Lymph % (Auto) 7.4 L (20-40) % Coleman % (Auto) 5.6 (2-11) % Eos % (Auto) 0.0 (0-4) % Baso % (Auto) 0.4 (0-2) % Lymph # (Auto) 0.9 L (1.2-4.9) X10*3/uL Coleman # (Auto) 0.7 (0.1-1.2) X10*3/uL Eos # (Auto) 0.0 (0.0-0.4) X10*3/uL Baso # (Auto) 0.1 (0.0-0.2) X10*3/uL Abs Immat Gran (auto) 0.04 H (0.00-0.03) X10*3/uL Absolute Neuts (auto) 10.4 H (2.0-8.3) x10*3/uL Absolute Nucleated RBC 0.000 (0.0-0.012) X10*3/uL Nucleated RBC % (auto) 0.0 (0.0-0.2) /100WBC Sodium 141 (135-145) mmol/L Potassium 3.9 (3.3-5.1) mmol/L Chloride 112 H (96-108) mmol/L Carbon Dioxide 17 L (22-29) mmol/L Anion Gap 16 (12-20) BUN 18 H (9-16) mg/dL Creatinine 0.73 (0.5-1.4) mg/dL Estim Creat Clear Calc 68.7 Estimated GFR > 60 Random Glucose 133 H (60-115) mg/dL Calcium 9.7 (8.4-10.2) mg/dL Total Bilirubin 0.5 (0.0-1.0) mg/dL AST 65 H (5-31) U/L ALT 109 H (0-31) U/L Alkaline Phosphatase 114 (39-117) U/L Total Protein 7.9 (6.5-8.0) g/dL Albumin 5.1 H (3.5-5.0) g/dL Lipase 29 (8-78) U/L Influenza Type A (PCR) NEGATIVE (Negative) Influenza Type B (PCR) NEGATIVE (Negative) RSV RNA Qual (PCR) NEGATIVE (Negative) SARS-CoV-2 RNA (RT-PCR) POSITIVE A (Negative) Radiology Impression Discussion of test interpretation with radiology: I have reviewed the radiologist's reading. Discharge Plan Discharge Clinical Impression: COVID-19 Patient Disposition: Home, Self-Care Instructions: COVID-19 (Coronavirus Disease 2019) (ED), How to Recover from COVID-19 at Home (ED) Additional Instructions: You tested positive for COVID. See home care instructions. You had no additional lab abnormalities, the chest x-ray is clear. Uses Zofran as needed for nausea. You should stay home and self isolate. Prescriptions: New ondansetron 4 mg tablet,disintegrating 4 mg PO Q8H PRN (Reason: nausea and vomiting) Qty: 12 0RF No Action prednisone 20 mg tablet 40 mg PO DAILY 5 Days Qty: 10 0RF acetaminophen 325 mg capsule 325 mg PO QID PRN (Reason: pain) 7 Days Qty: 28 0RF valacyclovir 1 gram tablet 1,000 mg PO TID 10 Days Qty: 30 0RF prednisone 20 mg tablet 40 mg PO DAILY 5 Days Qty: 10 0RF mupirocin [Centany] 2 % ointment 1 appl topical BID Qty: 15 0RF Interventions: ED Discharge Assessment Last Done: 11/12/25 02:35 Discharge Date/Time: 11/12/25 02:36 Print Language: Pashto
[2025-11-12 00:55] LABS: Hematocrit 44.8 % (37.0-47.0); Hemoglobin 15.7 g/dl (12.0-16.0); Imm Gran Abs Auto 0.04 X10*3/uL (0.00-0.03); Imm Gran Pct Auto 0.3 % (0.0-0.4); Lymphocytes Absolute Auto 0.9 X10*3/uL (1.2-4.9); MANUAL DIFF FLAG NO; Mean Corpuscular HGB Conc 35.0 g/dl (31.0-35.0); Mean Corpuscular Hemoglobin 31.8 pg (27.0-33.0); Mean Corpuscular Volume 90.7 fL (80.0-98.0); NRBC Abs Auto 0.000 X10*3/uL (0.0-0.012); NRBC Pct Auto 0.0 /100WBC (0.0-0.2); Platelet Count 209 X10*3/uL (160-400); Red Blood Count 4.94 X10*6/uL (4.20-5.50); White Blood Count 12.1 X10*3/uL (4.8-10.8)
[2025-11-12 01:08] LABS: Alanine Aminotransferase 109 U/L (0-31); Albumin Level 5.1 g/dL (3.5-5.0); Alkaline Phosphatase 114 U/L (39-117); Anion Gap 16 (12-20); Aspartate Amino Transferase 65 U/L (5-31); Blood Urea Nitrogen 18 mg/dL (9-16); Calcium 9.7 mg/dL (8.4-10.2); Carbon Dioxide 17 mmol/L (22-29); Chloride 112 mmol/L (96-108); Creatinine Clr Calc Pharmacy 68.7; Estimated Glomerular Filt Rate > 60; Lipase 29 U/L (8-78); Potassium 3.9 mmol/L (3.3-5.1); Sodium 141 mmol/L (135-145); Total Protein 7.9 g/dL (6.5-8.0)
[2025-11-12 01:32] LABS: Resp Syncy Virus RNA Qual PCR NEGATIVE (Negative); SARS COV2 PCR INHOUSE POSITIVE (Negative)
--- OUTSIDE RECORDS SUMMARY | 2025-11-12 02:24 | XMS_ITS | Clinical Summary ---
Author Organization [facility] Address [address] [place] [address] Phone Care Team Providers Care Breaker Off Name Role Phone Kayla Aponte MD Primary Care Provide r Allergies No known active allergies Medications lamoTRIgine (LAMICTAL) 100 MG tablet Take 100 mg by mouth 3 (three) times a day. Active topiramate (TOPAMAX) 50 MG tablet Take 50 mg by mouth 2 (two) times a day. Active QUEtiapine (SEROQUEL) 100 MG tablet Take 100 mg by mouth nightly at bedtime. Half tab nightly (50mg) Active valACYclovir (VALTREX) 1000 MG tabletIndications: Herpes simplex vulvovaginitis Take 1 tablet (1,000 mg total) by mouth daily. 90 tablet 3 0 Active estradioL (VAGIFEM) 10 mcg TabIndications:Vag inal atrophy Place 1 tablet (10 mcg total) vaginally 2 (two) times a week. 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 States 500 mg daily tablet was not adequate for suppression in the past. Would like to remain on 1000 mg daily. Vaginal atrophy 08/06/2020 Assessment & Plan (08/06/2020 10:34 AM EDT): Risks and benefits of vaginal estrogen use reviewed with patient. Patient worried she could have a side effect. Reassured patient this is very unlikely. Use of lubricants for intercourse reviewed as well. Patient would like to try vaginal estrogen tablet. Instructions for use provided. Family History * Patient is adopted Medical History Relation Comments No Known Problems Daughter 1 No Known Problems Daughter 2 Relation Status Comments Daughter 1 Alive Daughter 2 Alive Social History Tobacco Use Types Packs/Day Years Used Date Smoking Tobacco: Former Cigarettes Q uit: 2013 Smokeless Tobacco: Never Alcohol Use Standard Drinks/Week Comments Not Currently 0 (1 standard drink = 0.6 oz pur e alcohol) occ Education Answer Date Recorded Are you interested in more education? Not on erwin e 03/10/2023 Are you concerned about learning? Not on file 03/10/2023 No 03/10/2023 No 03/10/2023 Digital Access Answer Date Recorded No 04/11/2023 No 04/11/2023 Reliable internet access at home? Not on file 04/11/2023 Device with a working camera? Not on file Comments No Sex and Gender Information Value Date Recorded Sex Assigned at Not on file Legal Sex Female 1:14 PM EDT Gender Identity Not on file Sexual Orientation Not on file Last Filed Vital Signs Vital Sign Reading Time Taken Comments Blood Pressure 108/70 08/06/2020 10:03 AM EDT Pulse - - Temperature - - Respiratory Rate - - Oxygen Saturation - - Inhaled Oxygen Concentration - - Weight 60.3 kg (133 lb) 08/06/2020 10:03 AM EDT Height 160.5 cm (5' 3.2 ) 08/06/2020 10:03 AM ED T with shoes Body Mass Index 23.41 08/06/2020 10:03 AM EDT Plan of Treatment Health Maintenance Due Date Last Done Comments Adult Td,Tdap Booster 1958 LIPID PANEL 1958 DEPRESSION SCREENING 1970 SMOKING Hx and SMOKELESS TOB ACCO SCREENING 1971 HEPATITIS C SCREENING 1976 MAMMOGRAM 1998 COLOGUARD 2003 COLONOSCOPY 2003 COLORECTAL CANCER SCREENING 2003 FIT TEST 2003 FOBT 2003 SIGMOIDOSCOPY 2003 VIRTUAL COLONOSCOPY 2003 PNEUMOCOCCAL VACCINES (50+ y ears) (1 of 1 - PCV) 2008 ZOSTER VACCINES (1 of 2) 2008 OSTEOPOROSIS SCREENING INITI AL (ONE-TIME) 2023 INFLUENZA VACCINE (#1) 2025 07/29/2020 COVID-19 VACCINE (1 - 2024-2 6 season) 2025 RSV VACCINE (1 - 1-dose 75+ series) 2033 HEPATITIS A VACCINES Aged Out No long er eligible based on patient's age to complete this topic HIB VACCINES Aged Out No longer eligi ble based on patient's age to complete this topic MENINGOCOCCAL VACCINES (ACWY) Aged Out No longer eligible based on patient's age to complete this topic MENINGOCOCCAL VACCINES (B) Aged Out N o longer eligible based on patient's age to complete this topic Medical Devices Not on file Insurance [place] [id number] [facility] MEDICARE SUPPLEMENT MEDICARE PART A & B [employer] MEDICARE SUPPLEMENT MEDICARE PART A & B FOR LIFE MEDICARE SUPPLEMENT MEDICARE PART A & B Member Subscriber Plan / Payer (Ef fective 2023-) Name:Seble Miles Member ID:[id number] Relation to Subscriber:Self Name:Seble Miles Subscriber ID:[id number] Payer ID:[id number] Group ID:Not on file Type:Medicare Address: [employer] [address] [place] [phone] [employer] MEDICARE SUPPLEMENT MEDICARE PART A & B [employer] MEDICARE SUPPLEMENT MEDICARE PART A & B [facility] [employer] [facility] MEDICARE SUPPLEMENT Care Teams Breaker Off Relationship Specialty Start Date End Date Kayla Aponte MD [address] [place] [id number] PCP - General Internal Medicine 02/13/20 Additional Source Comments The information contained in this document represents components of the legal health record. It is not the complete legal health record.[facility]
--- OUTSIDE RECORDS SUMMARY | 2025-11-12 02:24 | XMS_ITS | Patient Health Record ---
Author Organization [facility] Address [address] [place] [address] Care Team Providers Care Machine Ceramic Coater Name Role Phone Leidy BANKS, Dionne Primary Care Provider Forrest John MD, Karin Unavailable [phone] Allergies Allergen (clinical drug ingredient) Drug/Non Drug Allergy documented on EMR Reaction Allergy Type Onset Date Status codeine Codeine Unknown Drug Allergy Active Reason For Referral No Information Medications Medication SIG (Take, Route, Frequency, Duration) Notes Start Date End Date Status valACYclovir HCl 500 MG Oral; Duration: 90 prn Active Gmkvnfhbvu-RPUH-Lqggryqq 50-325-40 MG Oral; Duration: 5 Active Omeprazole 20 MG Oral; Duration: 90 Active Topiramate 50 MG Oral; Duration: 90 Active LORazepam 1 MG Oral; Duration: 30 Active lamoTRIgine 100 MG Oral; Duration: 90 Active Latanoprost 0.005 % Ophthalmic; Duration: 90 Active Social History Tobacco Use: Social History Observation Description Date Details (start date - stop date) Former Smoker NA - NA Smoking: Question Answer Notes Are you a: former smoker Problems Problem Type SNOMED Code ICD Code Onset Dates Problem Status W/U Status Risk Notes Problem Skin changes due to chronic exposure to non-ionizing radiation (461891969) 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
--- OUTSIDE RECORDS SUMMARY | 2025-11-12 02:24 | XMS_ITS | Encounter Summary ---
Author Organization [facility] Address [address] [place] [phone] Phone Care Team Providers Care Rural Carrier Associate Name Role Phone Kayla Aponte MD Primary Care Provide r Encounter Details Date Type Department Care Team (Latest Contact Info) Description 12/06/2023 Transcribe Orders Virtual Department [address] [place] [phone] Charlene Srinivasan MD [address] [place] [phone] [email or web address] Asymptomatic menopausal state (Primary Dx) Social History Tobacco Use Types Packs/Day Years [...] on file Sexual Orientation Not on file documented as of this encounter Plan of Treatment Not on file documented as of this encounter Visit Diagnoses Diagnosis Asymptomatic menopausal state- Primary documented in this encounter Care Teams Rural Carrier Associate Relationship Specialty Start Date End Date Kayla Aponte MD [address] [place] [phone] PCP - General Internal Medicine 02/13/20 documented as of this encounter Additional Source Comments The information contained in this document represents components of the legal health record. It is not the complete legal health record.[facility]
--- OUTSIDE RECORDS SUMMARY | 2025-11-12 02:24 | XMS_ITS | Data Portability ---
Author Organization [facility], [facility] Address [address] [place] [address] Care Team Providers Care Foil Wrapper Name Role Phone Jm Byron Primary Care Provider Assessment No assessment recorded. Plan of Treatment Reminders Order Date Submit Date Provider Name Organization Details Last Modified By Last Modified Time Details Appointments None record ed. Lab None record ed. Referral None record ed. Procedures None record ed. Surgeries None record ed. Imaging None record ed. MedicationOrders None record ed. VaccineOrders None record ed. Patient TargetsNo targets recorded. Patient InstructionsNo instructions recorded. Reason for Referral None Reported. Medical Equipment None Reported. Allergies Allergen ID Allergen Name Allergen Category Reaction Reaction Severity Criticality Documentation Date Start Date Code Code System Note Provider Name and Address Organization Details Recorded Time [id number] codeine medicatio n Not available Not available Not available 04/04/2024 2670 RxNorm BREA ojeda [place] - [facility] 4 10:21:42 Medications Name Authored On Sig Start Date Stop Date Status Note Indication Fill Status Repeat Number Dispense Quantity LastModified by Organization Details LastModified Time albut leonardo sulfa te HFA 90 mcg/a ctuat ion aeros ol inhal er 4 07:36:26 active Not Available Not availab le 0 Not Available Not Available [facility] 03/27/2024 07:36:26 buspi cornelio 5 mg table t 4 07:36:26 active Not Available Not availab le 0 Not Available Not Available [facility] 03/27/2024 07:36:26 butal bital -acet amino phen- caffe ine 50 mg-32 5 mg-40 mg table t 4 07:36:26 TAKE 1 TABL ET BY MOUT H EVER Y 8 HOUR S NEED ED active Not Available Not availab le 0 Not Available [facility] 03/27/2024 07:36:26 desve nlafa xine succi andrey ER 25 mg table t,ext ended relea se 24 hr 4 07:36:26 active Not Available Not availab le 0 Not Available Not Available [facility] 03/27/2024 07:36:26 diclo fenac 1 % topic al gel 4 07:36:26 APPL Y 2 GRAM S TO THE AFFE CTED AREA S TOPI CALL Y FOUR TIME S KOMAL Y active Not Available Not availab le 0 Not Available Not Available [facility] 03/27/2024 07:36:26 lamot rigin e 200 mg table t 4 07:36:26 active Not Available Not availab le 0 Not Available Not Available [facility] 03/27/2024 07:36:26 latan opros t 0.005 % eye drops 4 07:36:26 active Not Available Not availab le 0 Not Available Not Available [facility] 03/27/2024 07:36:26 loraz epam 1 mg table t 4 07:36:26 active Not Available Not availab le 0 Not Available Not Available [facility] 03/27/2024 07:36:26 melox icam 7.5 mg table t 4 07:36:26 TAKE 1 TABL ET BY MOUT H KOMAL Y FOR 7 DAYS active Not Available Not availab le 0 Not Available Not Available [facility] 03/27/2024 07:36:26 predn isone 20 mg table t 4 07:36:26 TAKE 2 TABL ETS BY MOUT H KOMAL Y FOR 5 DAYS active Not Available Not availab le 0 Not Available Not Available [facility] 03/27/2024 07:36:26 topir amate 100 mg table t 4 07:36:26 TAKE 1 TABL ET BY MOUT H TWIC E KOMAL Y active Not Available Not availab le 0 Not Available Not Available [facility] 03/27/2024 07:36:26 trazo done 100 mg table t 07:36:26 TAKE 1 TABL ET BY RICKIE SAUCEDA Y AT BEDT ARMANDO active Not Available Not availab le 0 Not Available Not Available [facility] 03/27/2024 07:36:26 melox icam 15 mg table t 13:28:46 TAKE 1 TABL ET BY RICKIE Contreras EVER Y DAY DIRE CTED active Not Available Not availab le 0 Not Available Not Available [facility] 04/14/2024 13:28:46 Vitals Date Recorded Body height Body mass index (BMI) Body weight Provider Name and Address Organization Details Last Updated DateTime 04/02/2024 157.48 cm 26.3 kg/m2 32584.3 g KATIE perdomo [facility] 04/02/2024 15:15:48 Social History Social History Observation Description Date Observed Sex Unknown 11/12/2024 Legal Sex Female No social history survey screeners recorded No social history SDOH screeners recorded Functional Status None recorded. No Functional Screening assessment recorded No Functional SDOH screeners recorded Mental Status None recorded. No Mental Screening assessment recorded No Mental SDOH screeners recorded Family History Nothing Reported. Medical History No medical history recorded. Gynecological HistoryNo gynecological history recorded. Obstetrics History GPAL:G 0 P 0 0 0 0 Past Encounters Encounter ID Performer Location Encounter Start Date Encounter Closed Date Diagnosis/Indication Diagnosis SNOMED-CT Code Diagnosis ICD10 Code Diagnosis IMO Codes Diagnosis Note [id number] LIZBETH Sweeney [address] [place] [address] 04/02/2024 15:03:45 04/15/2024 14:41:39 Osteoarthritis of right knee joint [id number] 92094 M17.11 Health Concerns Section Related Observation LastModified by Organization Detai ls LastModified Time None Recorded Concern Status LastModified by Organization Details LastModified Time None Recorded SDOH Concern Status LastModified by Organization Det ls LastModified Time None Recorded Advance Directives Directive None Recorded Payers Insurance Date Sequence Insurance Name Policy Number Policy Sierra Covered Member ID Sierra Member ID Guarantor Name 04/02/2024 1 [place]ICARE [place]: [employer] Marjorie Miles [id number] Marjorie Miles 04/15/2024 2 FOR LIFE ( - MEDICARE SUPPLEMENT) Marjorie Miles [id number] Marjorie Miles Notes Date Note Type Note Provider Name and Address Organization Details Recorded Time 04/02/2024 text/html ROS as noted in the HPI I am seeing the patient today under [...] concerns were answered today. Mandeep Sparks PA-C [address] [place] [address] [address], [place], [address], [facility] - [facility] 04/02/2024 15:47:49 Care Team Name Role Member ID Specialty Address Phone BYRON KC DO Primary Care Provider [phone] OBGyn Episode No OBEpisode recorded.
--- OUTSIDE RECORDS SUMMARY | 2025-11-12 02:25 | XMS_ITS | Patient Health Record ---
Author Organization [facility] Address [address] [place] [address] Care Team Providers Care Orthopedic Shoes Salesperson Name Role Phone Kayla Aponte M.D. Primary Care Provider Betty vailable Víctor Russell Unavailable [phone] Paradise Castro Unavailable Unavailable Reason For Referral No Information Medications Medication SIG (Take, Route, Fr equency, Duration) Notes Start Date End Date Status Topiramate Active SEROquel Active lamoTRIgine Active Eye Drops Active valACYclovir HCl Act dilma Immunizations Vaccine Route Administration Date Status Comme nts Influenza Unknown 07/14/2015 Administered Social History Social History Additional Details Category Social Info Options Details Miscellaneous: Marital status: Occupation: Administrative a ssistant Section Notes: On and off smoking through t he years--stopped 06/2016; no alcohol Problems Problem Type SNOMED Code ICD Code Onset Dates Problem Status W/U Status Risk Notes Problem Screening for malignant neoplasm of colon (567052460) Encounter for screening for malignant neoplasm of colon (Z12.11) Active confirmed Problem Screening for malignant neoplasm of rectum (085658109) Encounter for screening for malignant neoplasm of rectum (Z12.12) Active confirmed Problem Preprocedural examination (380183135745062) Preprocedural examination (Z01.818) Active confirmed Plan Of Treatment Future Test Test Name Order Date COLONOSCOPY 07/28/2016 Insurance Providers Payer Name Payer Address Payer Phone Subscriber Number Group Number Insured Name Patient Relationship to Insured Coverage Start Date Coverage End Date [facility] [address] [place] [phone] [id number] MARJORIE GRIGSBY Self - patient is the insured Medical (General) History Medical History History ICD Code COPD-- mild Denies MA,DM,CVA,,renal disease Depression/anxiety Surgical History Surgery Date(Month/Year) lump right breast- benign 1993 tonsillectomy-age 3
--- OUTSIDE RECORDS SUMMARY | 2025-11-12 02:25 | XMS_ITS | Clinical Summary ---
Author Organization [facility] it Address [address] [place] [address] Care Team Providers Care Director Of Officiating Name Role Phone Kayla Aponte MD Primary [...] Martin COPD (chronic obstructive pu lmonary disease) ([facility] V24, [facility] V28) 03/14/2011 DX:COPD (chronic o bstructive pulmonary disease) ([facility]) Adopted person DX:Adopted perso n Heartburn 04/30/2019 DX:Heartburn Epigastric pain 08/29/2019 DX:Epigastric pa in Family History Medical History Relation Name Comments No Known Problems Daughter 1 1982; Amanda ifer; healthy No Known Problems Daughter 2 1984; Suri nataliia; healthy Relation Name Status Comments Daughter 1 Alive 1982; Liz; healthy Daughter 2 Alive 1984; Aminta ; healthy Social History Tobacco Use Types Packs/Day Years Used Date Smoking Tobacco: Former Cigarettes 1 Q uit: 06/20/2016 Smokeless Tobacco: Never Alcohol Use Standard Drinks/Week Comments No 0 (1 standard drink = 0.6 oz pur e alcohol) Comments Unknown Sex and Gender Information Value Date Recorded Sex Assigned at Not on file Legal Sex Female 2:44 PM EST Gender Identity Not on file Sexual Orientation Not on file Plan of Treatment Health Maintenance Due Date Last Done Comments Breast Cancer Screening 1960 Colorectal Cancer Screening: Colonoscopy 1960 RSV Immunization Adult Patients (1 - Risk 50-74 years 1-dose series) 2008 Pneumococcal Vaccine: 50+ Years (2 of 2 - PCV) 03/28/2017 03/28/2016 Hepatitis C Screening 10/12/2022 Osteoporosis Screening (Bone Density Screening) 10/12/2022 Social Influencers of Health Screening 10/12/2022 Falls Risk Assessment 2023 Depression Screening 11/13/2024 COVID-19 Vaccine ( season) 2025 Influenza Vaccine (#1) 2025 9, 08/11/2015, 09/25/2013, Additional history exists DTaP,Tdap,and Td Vaccines (3 - Td or Tdap) 03/28/2026 03/28/2016, 11/18/2009 IPV Vaccines Completed 09/23/1966, 11/1962, 04/13/1962, Additional history exists Zoster Vaccines Completed 10/12/2018, 08/08/2018 MMR Vaccines Aged Out 06/12/2019, 05/08/2019 No lo nger eligible based on patient's age to complete this topic Lung Cancer Screening (Low Dose CT) Discontinued 02/24/2021 HIB Vaccines Aged Out No longer eligi [...] AM EDT Narrative 02/24/2021 1:49 PM EDT [facility] Diagnostic Imaging Department [address] [place] [id number] Patient: CALISTASEBLE M /Age/Sex: 1960 - 60 - F Unit#: [id number] [facility] Mnemonic/Ordering Site: [facility] Ordering Physician: MAHESH ALBA MD CT Lung Screening Low Dose - 02/24/211119 History: 60 year-old 41 pack-year former smoker, asymptomatic, for lung cancer screening. Quit smoking 5 years ago. Comparison: 12/10/19 Technique: Helical volumetric imaging of the thorax was performed, using low- dose technique, without IV contrast. DLP: 111.98 mGy/cm CTDIvol: 3.22 mGy Au FINANCIER[employer] Iterative reconstruction technique Findings: Lungs and Airways: [...] Procedure Note Sherry Bright MD - 11/01/2022 [facility] Diagnostic Imaging Department [address] [place] [address] Patient: SEBLE GRIGSBY /Age/Sex: 1960 - 60 - F Unit#: [id number] Location/Status: SPDICATLS/REG CLI Mnemonic/Ordering Site: [facility] Ordering Physician: MAHESH ALBA MD CT Lung Screening Low Dose - 02/24/21 - 1120 History: 60 year-old 41 pack-year former smoker, asymptomatic, for lungcancer screening. Quit smoking 5 years ago. Comparison: 12/10/19 Technique: Helical volumetric imaging of the thorax was performed, usinglow- dose technique, without IV contrast. DLP: 111.98 mGy/cm CTDIvol: 3.22 mGy Dwellable VCT Iterative reconstruction technique Findings: Lungs and [...] Recently Relevant to Health Maintenance Care Teams Director Of Officiating Relationship Specialty Start Date End Date Kayla Aponte MD PCP - General 07/17/08
--- NOTE | 2025-11-12 02:29 | PC.NURSE ---
medicated per mar.
[2025-11-12 02:35] VITALS: BP 144/53; PULSE 69; RESP 20; TEMP 36.6; O2SAT 99
--- NOTE | 2025-11-12 02:36 | PC.NURSE ---
medicated per mar, reviewed discharge instructions with pt. pt verbalized understanding, no sign of respiratory distress upon discharge. pt had a steady gait.
== END 2025-11-12 02:36 | disposition home or self-care (01) ==
PROVIDERS: Physician Assistant; Emergency Provider Emergency Medicine
DX: U07.1 COVID-19 (principal); R05.9 Cough, unspecified; M79.10 Myalgia, unspecified site; R53.81 Other malaise; R11.2 Nausea with vomiting, unspecified; R19.7 Diarrhea, unspecified; R53.1 Weakness; I49.3 Ventricular premature depolarization; R06.02 Shortness of breath
CPT/HCPCS: 71046; 80053; 83690; 85025; 87637; 93005; 99284

== ENCOUNTER → 2025-11-12 00:34 | Outpatient (BNV) | payer MEDICARE, OTHER, SELFPAY | PROVIDERS: Visit Provider Student in an Organized Health Care Education/Training Program | DX: R06.02 Shortness of breath (principal) | CPT/HCPCS: 71046 ==

== ENCOUNTER → 2025-11-12 00:34 | Outpatient (BNV) | payer MEDICARE, OTHER, SELFPAY | PROVIDERS: Emergency Provider Emergency Medicine; Visit Provider Internal Medicine | DX: R53.1 Weakness (principal) | CPT/HCPCS: 93010 ==